=== PATIENT | female | born 1965 | race Two or more races ===

== ENCOUNTER 2024-01-07 10:46 | Emergency (ER) | payer OTHER ==
[~2024-01-07] VITALS: Ht 170.2 cm; Wt 99.8 kg
[2024-01-07] MEDS ORDERED: ENALAPRIL MALEAT5 MG (11:31)
[2024-01-07] MEDS ORDERED: IRON325 MG (11:31)
[2024-01-07] MEDS ORDERED: 0.9 % SODIUM CHLORIDE 1,000 ML IV SCH (12:00)
[2024-01-07 12:26] LABS: MEAN CELL VOLUME 112.1 fL (80.00-100.00); MEAN CORPUSCULAR HGB CONC 35.4 g/dl (32.0-36.0); RED BLOOD COUNT 2.07 M/uL (4.00-6.00)
[2024-01-07 12:32] LABS: INR 1.03; PARTIAL THROMBOPLASTIN TIME 32.8 SECONDS (22.0-34.0); PROTHROMBIN TIME 10.8 SECONDS (9.0-11.5)
[2024-01-07 12:33] LABS: HEMATOCRIT 23.2 % (36.0-45.00); HEMOGLOBIN 8.2 g/dL (12.0-15.00); MEAN CORPUSCULAR HEMOGLOBIN 39.6 pg (27.00-32.0); PLATELET COUNT 121 K/uL (150-450)
[2024-01-07 12:56] LABS: PH,URINE 5.5 (5.0-8.0); URINE APPEARANCE Cloudy; URINE BILIRRUBIN Negative (NEGATIVE); URINE BLOOD Negative; URINE COLOR Yellow; URINE GLUCOSE Negative (NEGATIVE); URINE KETONE Negative (NEGATIVE); URINE LEUKOCYTE Moderate; URINE NITRATE Negative; URINE PROTEIN Negative (NEGATIVE); URINE UROBILINOGEN 0.2 E.U./dl
[2024-01-07 12:58] LABS: CALCIUM 9.7 mg/dL (8.5-10.1); CREATININE SERUM 0.95 mg/dL (0.55-1.02); GFR 60.85; POTASSIUM 4.18 mEq/L (3.5-5.1)
[2024-01-07 12:58] LABS: URINE BACTERIA 1001.6 uL (0.0-1933); URINE RBC 2.1 uL (0.0-20.8); URINE WBC 76.3 uL (0.0-23.2)
== END 2024-01-07 13:23 | disposition home or self-care (01) ==
LOC: ER 10:47
PROVIDERS: Emergency Medicine
DX: D64.9 Anemia, unspecified (principal)